=== PATIENT | female | born 1950 | race Native Hawaiian/Other Pacific Islander ===

== ENCOUNTER 2019-01-22 23:30 | Emergency (ER) | payer OTHER ==
[~2019-01-22] VITALS: Ht 157.5 cm; Wt 68.0 kg
[2019-01-22 23:57] LABS: PLATELET COUNT 281 K/uL (152-353)
[2019-01-23 00:06] LABS: POTASSIUM 3.6 mmol/L (3.6-5.2)
[2019-01-23 00:33] VITALS: BP 167/98; TEMP 98.3
[2019-01-23] MEDS ORDERED: QUETIAPINE25 MG PO (01:47)
[2019-01-23] MEDS ORDERED: BUPROPN HCL300 MG PO (01:47)
[2019-01-23] MEDS ORDERED: WELLBUTRIN200 MG PO (01:48)
[2019-01-23] MEDS ORDERED: VENL37.511 PO (01:49)
[2019-01-23] MEDS ORDERED: COZAAR100 MG PO (01:50)
[2019-01-23] MEDS ORDERED: DIAZ5TAB20 PO (01:50)
[2019-01-23] MEDS ORDERED: LOVA20TA PO (01:51)
[2019-01-23] MEDS ORDERED: FEMARA2.5 MG PO (01:52)
== END 2019-01-23 01:50 | disposition other institution (70) ==
LOC: ED 23:30
PROVIDERS: Emergency Medicine
DX: F28 Other psychotic disorder not due to a substance or known physiological condition (principal); Z04.6 Encounter for general psychiatric examination, requested by authority
CPT/HCPCS: 36415; 80053; 81000; 85027; 93005; 99285